=== PATIENT | female | born 1950 | race American Indian/Alaskan Native ===

== ENCOUNTER 2021-05-29 06:34 | Day surgery (SDC) | payer MEDICARE ==
[2021-05-29 07:43] LABS: Basophils # (Auto) 0.1 K/mm3 (0.0-0.1); Basophils % (Auto) 1.2 % (0.0-1.8); Eosinophils # (Auto) 0.1 K/mm3 (0.0-0.4); Hematocrit 37.1 % (30.3-42.9); Hemoglobin 12.1 gm/dl (10.1-14.3); Lymphocytes # (Auto) 2.9 K/mm3 (1.2-5.4); Lymphocytes % (Auto) 40.3 % (13.4-35.0); Mean Corpuscular HGB Conc 33 % (30-34); Mean Corpuscular Volume 88 fl (79-97); Monocytes # (Auto) 0.5 K/mm3 (0.0-0.8); Monocytes % (Auto) 7.6 % (0.0-7.3); Platelet Count 286 K/mm3 (140-440); Red Blood Count 4.24 M/mm3 (3.65-5.03)
[2021-05-29 07:54] LABS: BUN/Creatinine Ratio 19; Blood Urea Nitrogen 17 mg/dL (7-17); Hemolysis Index 6
[2021-05-29 07:55] LABS: INR 0.86 (0.87-1.13)
[2021-05-29 07:56] LABS: Partial Thromboplastin Time 30.9 Sec. (24.2-36.6)
[2021-05-29] MEDS ORDERED: SODIUM CHLORIDE 0.9% 500 ML 500 ML IV SCH (08:00)
[2021-05-29] MEDS ORDERED: HEPARIN/NS 5000 UNIT/500ML 1,000 ML IR ONE (08:25)
[2021-05-29] MEDS ORDERED: LIDOCAINE (2%) 20 MG/1 ML VIAL 20 ML MDV INFILTRATI ONE ×4 (08:26→10:38)
[2021-05-29] MEDS ORDERED: HEPARIN 10,000 UNITS/10 ML VIAL ONE ×2 (08:26→11:17)
[2021-05-29] MEDS ORDERED: VERAPAMIL 5 MG/2 ML INJ ONE (08:26)
[2021-05-29] MEDS ORDERED: NITROGLYCERIN SYRINGE 6 ML ONE (08:39)
[2021-05-29] MEDS ORDERED: HEPARIN/NS 5000 UNITS/500 ML BAG (CATH LAB ONLY) IR ONE ×2 (08:45)
[2021-05-29] MEDS ORDERED: fentaNYL 100 MCG/2 ML INJ ONE ×3 (08:53→10:59)
[2021-05-29] MEDS ORDERED: MIDAZOLAM 2 MG/2 ML INJ ONE ×3 (08:53→10:58)
[2021-05-29] MEDS ORDERED: MIDAZOLAM 2 MG/2 ML INJ IV ONE ×3 (09:08→10:18)
[2021-05-29] MEDS ORDERED: fentaNYL 100 MCG/2 ML INJ IV ONE ×4 (09:08→10:42)
[2021-05-29] MEDS ORDERED: HEPARIN 10,000 UNITS/10 ML VIAL IV ONE ×4 (09:20→11:21)
[2021-05-29] MEDS ORDERED: HEPARIN/NS 5000 UNIT/500ML 500 ML IR ONE (10:30)
[2021-05-29] MEDS ORDERED: VERAPAMIL 5 MG/2 ML INJ IV ONE (10:42)
[2021-05-29] MEDS ORDERED: NITROGLYCERIN 600 MCG/3 ML SYRINGE UD ONE (10:42)
[2021-05-29] MEDS ORDERED: SODIUM CHLORIDE 0.9% 1000 ML 1,000 ML ONE (10:51)
[2021-05-29] MEDS ORDERED: CLOPIDOGREL 300 MG TAB ONE (12:04)
[2021-05-29] MEDS ORDERED: ALUM-MAG HYDROXIDE-SIMETHICONE 200-200-20MG/5ML ORAL LIQD 30 ML ONE (12:05)
[2021-05-29] MEDS ORDERED: CLOPIDOGREL 300 MG TAB PO ONE ×2 (12:20→12:56)
[2021-05-29] MEDS ORDERED: ALUM-MAG HYDROXIDE-SIMETHICONE 200-200-20MG/5ML ORAL LIQD 30 ML PO ONE (12:20)
--- NOTE | 2021-05-29 12:50 | Short Stay Summary ---
Short Stay Documentation Date of service: 05/29/21 Narrative H&P: See H&P - History H&P: obtained from office - Allergies and Medications Current Medications: Allergies No Known Allergies Allergy (Verified 05/29/21 06:59) Home Medications Medication Instructions Recorded Confirmed Last Taken Type Lansoprazole 30 mg PO DAILY 05/29/21 05/29/21 05/28/21 History 30 mg amLODIPine 10 mg PO DAILY 05/29/21 05/29/21 05/29/21 04:30 History 10 mg hydroCHLOROthiazide [HCTZ] 25 mg PO DAILY 05/29/21 05/29/21 05/29/21 04:30 History lisinopriL [Zestril TAB] 40 mg PO DAILY 05/29/21 05/29/21 05/29/21 04:30 History Active Medications Sodium Chloride (Nacl 0.9% 500 Ml) 500 mls @ 50 mls/hr IV DIRECT CELY Last Admin: 05/29/21 08:34 Dose: 50 mls/hr Documented by: - Brief post op/procedure progress note Date of procedure: 05/29/21 Pre-op diagnosis: PVD with Bilateral Lower Extremity Claudication Post-op diagnosis: same Procedure: 1. Ultrasound Guided Access Left Common Femoral Artery 2. Ultrasound-Guided Access Right Common Femoral Artery 3. Ultrasound Guided Access Right Posterior Tibial Artery 4. Diagnostic Aortogram (No Previous Films For Comparison) 5. Diagnostic Left Lower Extremity Angiogram (No previous Films for Comparison) 6. Angioplasty and Stent of Left External Iliac Artery with 7 x 5 cm Viabahn Stent Graft (x2) and 7 x 40 [place] Balloon 7. Angioplasty of Left Common Femoral Artery with 7 x 80 IN.PACT Drug-Coated Balloon 8. Angioplasty of Left Profunda Artery with 5 x 150 IN.PACT Drug-Coated Balloon 9. Atherectomy with Angioplasty and Stent of Left SFA and Popliteal Artery with 2.4/3.4 Jetstream Atherectomy Catheter, 5 x 220 Gene Balloon, 6 x 150 IN.PACT Drug-Coated Balloon, 6 x 10 cm Viabahn Stent Graft, and 7 x 60 EverFlex Self-Expanding Stent 10. Closure of Right Femoral Arteriotomy with Pro-[place] Closure Device 11. Radiologic Supervision with Interpretation 12. Monitored Moderate Sedation (Total Anesthesia Time: 178 Minutes) Anesthesia: local, other (Monitored Moderate Sedation) Surgeon: OWEN NANCE Estimated blood loss: minimal Pathology: none Condition: stable - Disposition Condition at discharge: Good Disposition: 01 HOME / SELF CARE / HOMELESS Short Stay Discharge Plan Activity: other (No strenuous activity for 24 hours) Wound: remove dressing (In 24 hours), other (Okay to shower and wash the wounds with soap and water but do not soak in water for 2 weeks.) Follow up with: OWEN NANCE MD [Staff Physician] - 14 Days Prescriptions: Apixaban [Eliquis] 2.5 mg PO BID #60 tablet Oxycodone HCl/Acetaminophen [Percocet 7.5/325 mg] 1 each PO Q6HR PRN #30 tablet PRN Reason: Pain Clopidogrel [Plavix] 75 mg PO QDAY #90 tablet
[2021-05-29] MEDS ORDERED: oxyCODONE /ACETAMINOPHEN 5-325MG TAB PO PRN (12:56)
--- NOTE | 2021-05-29 12:56 | Operative Report ---
Operative Report Operative Report: Date of Procedure: 05/29/2021 Pre-operative Diagnosis: Peripheral Vascular Disease with Bilateral Lower Extre mity Claudication Post-operative Diagnosis: Same Procedure(s): 1. Ultrasound Guided Access Left Common Femoral Artery 2. Ultrasound-Guided Access Right Common Femoral Artery 3. Ultrasound Guided Access Right Posterior Tibial Artery 4. Diagnostic Aortogram (No Previous Films For Comparison) 5. Diagnostic Left Lower Extremity Angiogram (No previous Films for Comparison) 6. Angioplasty and Stent of Left External Iliac Artery with 7 x 5 cm Viabahn Stent Graft (x2) and 7 x 40 [place] Balloon 7. Angioplasty of Left Common Femoral Artery with 7 x 80 IN.PACT Drug-Coated Balloon 8. Angioplasty of Left Profunda Artery with 5 x 150 IN.PACT Drug-Coated Balloon 9. Atherectomy with Angioplasty and Stent of Left SFA and Popliteal Artery with 2.4/3.4 [employer] Atherectomy Catheter, 5 x 220 Gene Balloon, 6 x 150 IN.PACT Drug-Coated Balloon, 6 x 10 cm Viabahn Stent Graft, and 7 x 60 EverFlex Self-Expanding Stent 10. Closure of Right Femoral Arteriotomy with Pro-[place] Closure Device 11. Radiologic Supervision with Interpretation 12. Monitored Moderate Sedation (Total Anesthesia Time: 178 Minutes) Surgeon: Carroll Almanzar M.D. Dancing Teacher: None Anesthesia: Local/Monitored Moderate Sedation Total Anesthesia Time: 178 Minutes EBL: Minimal Counts: Correct Complications: None Condition: Stable Specimen: None Indication: The patient is a 71-year-old female with a history of peripheral vascular disease who presented with complaints of short distance claudication affecting bilateral lower extremities. She had previous interventions performed by an outside surgeon and presented for possible intervention by myself. She was given the risk, benefits, and alternative procedures and consented to the procedure. Angiographic Findings: The diagnostic aortogram revealed that the aorta was patent without aneurysmal dilatation or flow-limiting stenosis. The left lower extremity angiogram revealed that the left common iliac artery and hypogastric artery were patent without evidence of flow-limiting stenosis. There was a short string sign in the external iliac artery with an occlusion and reconstitution in the distal external iliac artery. The distal external iliac artery was stenotic with approximately 75% stenosis. The common femoral artery was patent but stenotic with approximately 50% stenosis. The profunda artery was patent without significant flow-limiting stenosis. The SFA was occluded with reconstitution of the popliteal artery and above-knee popliteal artery segment. The patient had three-vessel runoff and all vessels were patent without significant flow- limiting stenosis. After intervention the external iliac artery was patent with less than 10% residual stenosis. The common femoral artery was patent with some evidence of dissection however this was not flow-limiting. Both the SFA and profunda arteries were patent. The SFA was patent with approximately 30% stenosis in a short segment of the proximal artery. The remainder of the artery was patent with less than 20% residual stenosis. The popliteal artery was patent with less than 15% residual stenosis. Description of Procedure: The patient was brought to the Finance Business Manager and laid in supine position. After a timeout was performed she was adequately sedated and her bilateral groins and left foot were prepped and draped in normal sterile fashion. Ultrasound was used to identify the right common femoral artery and confirm patency. Once patency was confirmed the overlying skin and soft tissue was anesthetized with lidocaine. An 11 blade was used to make a small stab incision and then a curved hemostat was used to bluntly dissect down to the anterior surface of the right common femoral artery using ultrasound guidance. A 21-gauge micropuncture needle was used with ultrasound guidance to enter the right common femoral artery and a 0.018 micropuncture wire was advanced to the artery. The needle was removed and a micropuncture sheath was placed by Seldinger technique. The dilator and wire were removed and a 0.035 J-wire was advanced to the aorta. The micropuncture sheath was exchanged for 5 [place]an sheath by Seldinger technique. An Omni Flush catheter was advanced to the aorta and after removing the wire a diagnostic aortogram was performed with the previously described findings. A Bentson wire was advanced into the Omni Flush catheter and the catheter and wire were advanced up and over the bifurcation and an iliofemoral angiogram was performed with the previously described findings. The remainder of the angiogram was then performed with the catheter in the left common iliac artery. The Bentson wire was advanced into the hypogastric artery and the 5 Ugandan sheath was exchanged for a 7 Ugandan 45 cm destination sheath by Seldinger technique. At this point the patient was systemically heparinized with 5000 units of heparin IV and this was redosed with 1000 units of heparin IV every 45 minutes into the completion of the case. I then attempted to traverse the occluded external iliac artery using a Navicross catheter and a combination of wires without success. I decided to access the left common femoral artery and cross the occlusion in retrograde access. I used ultrasound to identify the left common femoral artery and accessed the artery using a 21-gauge micropuncture needle. I advanced a 0.018 micropuncture wire into the artery and then advanced the micropuncture dilator over the wire and into the stump of the external iliac artery. I removed the micropuncture wire and then advanced the 0.018 V18 wire over into the dilator and was able to cross the occluded external iliac artery and reenter into the common iliac artery. I used a 6-10 mm EnSnare through the 7 Ugandan sheath and was able to snare the wire and pulled this back through the right common femoral artery. I then advanced the Navicross catheter over the wire and into the common femoral artery which was confirmed by angiogram. I then remove the micropuncture dilator. I advanced a 0.014 [place] wire into the profunda artery and then performed angioplasty of the common femoral artery and external iliac artery using a 5 x 100 [place] Balloon. I then performed angioplasty of the common femoral artery and external iliac artery using a 6 x 100 IN.PACT Drug-Coated Balloon. This resulted in inline flow through the external iliac artery and into the profunda artery. At some point the wire was inadvertently pulled back across the reentry point and while recrossing the lesion the common femoral artery and external iliac artery were dissected which resulted in loss of inline flow into the profunda artery. At this point I decided to gain pedal access and revascularize the SFA. I used ultrasound to identify the left posterior tibial artery and anesthetize skin and soft tissue using lidocaine. I used a 21-gauge micropuncture needle with ultrasound guidance to access the artery in retrograde fashion and advanced the 0.018 micropuncture wire to the artery. I removed the needle and placed a micropuncture sheath by Seldinger technique. I remove the wire and dilator and placed a short J-wire and then placed a 4 [place] sheath by Seldinger technique. I injected a radial cocktail to reduce the spasm of the artery and then advanced a 0.018 V 18 wire through the artery and into the above-knee popliteal artery segment. I advanced a Navicross catheter over the wire and was able to cross the occluded popliteal artery and SFA and reenter into the common femoral artery which was confirmed by angiogram. I then was able to cannulate the 7 [place] sheath and advanced the catheter wire through the sheath and out of the right common femoral artery. I removed the Navicross catheter and advanced it back up over the wire and into the posterior tibial artery in antegrade fashion. I removed the V 18 wire and advanced the 0.014 Thruway wire into the posterior tibial artery. I performed atherectomy of the SFA using a 2.4/3.4 [employer] Atherectomy Catheter I performed angioplasty of the SFA and popliteal artery using a 6 x 150 IN.PACT Drug-Coated Balloon which resulted in a short segment dissection in the mid SFA and an area of perforation in the proximal SFA. I advanced a 6 x 10 cm Viabahn Stent Graft across the area of perforation and postdilated this with the 6 mm balloon resulted in no further perforation and less than 10% residual stenosis. I then placed a 7 x 60 EverFlex Self-Expanding Stent across the area of dissection and postdilated this with a 6 mm balloon resulted in less than 20% residual stenosis. There was an area just proximal to the stent graft with approximately 25% residual stenosis however this was not flow-limiting. I tyrone wired the common femoral artery leaving the Spartacore wire in place and was then able to use a vertebral catheter and a glide advantage wire and cannulate the profunda artery that had a dissection, preventing direct flow into the artery. I performed angioplasty of the artery using a 5 x 150 IN.PACT Drug-Coated Balloon which resulted in brisk flow of contrast into the artery and shifting of the plaque shelf lateral to the origin of the artery. I then advanced two 7 x 5 cm Viabahn Stent Grafts, with slight overlap, extending from the distal external iliac artery into the proximal external iliac artery and postdilated them with a 7 x 40 [place] balloon. This resulted in less than 10% residual stenosis within the left external iliac artery and brisk flow of contrast through the external iliac artery. I performed a final angioplasty of the left common femoral artery with a 7 x 80 IN.PACT Drug-Coated Balloon which resulted in less than 25% residual stenosis within the common femoral artery. At that point I removed all balloons and wires and advanced a Opbeatson wire to the aorta. I removed the sheath and used a Pro-glide closure device to close the left femoral arteriotomy. I injected a total of 400 mcg of nitroglycerin into the posterior tibial artery sheath and then removed and manual pressure was held to achieve hemostasis. Once hemostasis was achieved sterile dressings were applied to each entry site and the patient was transported to the recovery area in stable condition.
[2021-05-29] MEDS ORDERED: APIXABAN 2.5 MG TAB PO ONE (13:00)
[2021-05-29 14:55] VITALS: BP 148/73
== END 2021-05-29 15:14 | disposition home or self-care (01) ==
LOC: CATHLABREC 06:34
PROVIDERS: ATTEND Surgery Vascular Surgery
DX: I70.213 Atherosclerosis of native arteries of extremities with intermittent claudication, bilateral legs (principal); I10 Essential (primary) hypertension; Z87.891 Personal history of nicotine dependence; Z79.899 Other long term (current) drug therapy; Z98.890 Other specified postprocedural states
CPT/HCPCS: 36415; 37221; 37227; 75625; 75710; 76937; 80048; 85025; 85610; 85730; 99156; 99157; C1724; C1725; C1751; C1760; C1769; C1773; C1874; C1876; C1887; C1894; C2623; J1644; J2250; J3010; J7030; J7040; Q9967

== ENCOUNTER 2021-09-11 06:25 | Day surgery (SDC) | payer MEDICARE ==
[2021-09-11 07:51] LABS: Hematocrit 34.6 % (30.3-42.9); Hemoglobin 11.2 gm/dl (10.1-14.3); Mean Corpuscular HGB Conc 32 % (30-34); Mean Corpuscular Volume 89 fl (79-97); Platelet Count 357 K/mm3 (140-440); Red Blood Count 3.91 M/mm3 (3.65-5.03); Red Cell Distribution Width 13.1 % (13.2-15.2)
[2021-09-11] MEDS ORDERED: SODIUM CHLORIDE 0.9% 500 ML 500 ML IV SCH (08:00)
[2021-09-11 08:03] LABS: INR 0.84 (0.87-1.13); Partial Thromboplastin Time 26.9 Sec. (24.2-36.6)
[2021-09-11 08:05] LABS: Calcium 8.9 mg/dL (8.4-10.2)
[2021-09-11] MEDS ORDERED: HEPARIN/NS 5000 UNIT/500ML 1,000 ML IR ONE (08:36)
[2021-09-11] MEDS ORDERED: ceFAZolin/Water 2 GM/20 ML 2 GM/20 ML SYRINGE IV ONE (09:10)
[2021-09-11] MEDS: fentaNYL 100 MCG/2 ML INJ ONE ×3 (09:16→10:14)
[2021-09-11] MEDS: MIDAZOLAM 2 MG/2 ML INJ ONE ×3 (09:16→10:14)
[2021-09-11] MEDS: LIDOCAINE (2%) 20 MG/1 ML VIAL 20 ML MDV INFILTRATI ONE ×2 (09:16→09:32)
[2021-09-11] MEDS: HEPARIN 10,000 UNITS/10 ML VIAL ONE ×2 (09:46→10:30)
[2021-09-11] MEDS ORDERED: SODIUM CHLORIDE 0.9% 1000 ML 1,000 ML ONE (10:09)
[2021-09-11] MEDS ORDERED: MIDAZOLAM 5 MG/5 ML INJ MDV IV ONE (10:09)
[2021-09-11] MEDS: fentaNYL 250 MCG/5 ML INJ ONE ×2 (10:22→10:30)
[2021-09-11] MEDS ORDERED: NITROGLYCERIN SYRINGE 6 ML ONE (10:55)
--- NOTE | 2021-09-11 11:24 | Short Stay Summary ---
Short Stay Documentation Date of service: 09/11/21 Narrative H&P: See H&P - History H&P: obtained from office - Allergies and Medications Current Medications: Allergies No Known Allergies Allergy (Verified 05/29/21 06:59) Home Medications Medication Instructions Recorded Confirmed Last Taken Type Clopidogrel [Plavix] 75 mg PO QDAY #90 tablet 05/29/21 09/11/21 09/11/21 Rx 75 MG Lansoprazole 30 mg PO DAILY 05/29/21 09/11/21 09/10/21 History 30 MG Oxycodone HCl/Acetaminophen 1 each PO Q6HR PRN #30 tablet 05/29/21 09/11/21 Unknown Rx [Percocet 7.5/325 mg] amLODIPine 10 mg PO DAILY 05/29/21 09/11/21 09/11/21 History 10 MG hydroCHLOROthiazide [HCTZ] 25 mg PO DAILY 05/29/21 09/11/21 09/11/21 History 25 MG lisinopriL [Zestril TAB] 40 mg PO DAILY 05/29/21 09/11/21 09/11/21 History 40 MG Active Medications Sodium Chloride (Nacl 0.9% 500 Ml) 500 mls @ 50 mls/hr IV DIRECT CELY - Brief post op/procedure progress note Date of procedure: 09/11/21 Pre-op diagnosis: Peripheral Vascular Disease with Right Lower Extremity Claudication Post-op diagnosis: same Procedure: 1. Ultrasound Guided Access Left Common Femoral Artery 2. Diagnostic Right Lower Extremity Angiogram (No Previous Films for Comparison) 3. Atherectomy and Angioplasty of the Right SFA and Popliteal Artery with 2.1/3.0 Jetstream Atherectomy Catheter, 5.0 x 220 Gene Balloon in the Distal Popliteal Artery, and 6.0 x 150 IN.PACT Drug-Coated Balloons (x3) in the Proximal Popliteal Artery and SFA 4. Angioplasty and Stent of Right External Iliac Artery with 7.0 x 80 IN.PACT Drug-Coated Balloon and 7 x 5 cm Viabahn Stent Graft 5. Closure of Left Femoral Arteriotomy with Perclose ProStyle Closure Device 6. Radiologic Supervision with Interpretation 7. Monitored Moderate Sedation (Total Anesthesia Time: 104 Minutes) Anesthesia: local, other (Monitored Moderate Sedation) Surgeon: OWEN NANCE Estimated blood loss: minimal Pathology: none Condition: stable - Disposition Condition at discharge: Good Disposition: 01 HOME / SELF CARE / HOMELESS Short Stay Discharge Plan Activity: other (No strenuous activity for 48 hours) Wound: remove dressing (In 48 hours), other (Okay to shower and wash the wound with soap and water but do not soak in water for 2 weeks.) Special Instructions: other (Subtitute Pletal (Cilastazol) for Aspirin. Ok to stop taking the aspirin.) Follow up with: OWEN NANCE MD [Staff Physician] - 14 Days Prescriptions: cilostazoL [Pletal] 100 mg PO BID #180 tablet
[2021-09-11] MEDS ORDERED: HYDROcodone/ACETAMINOPHEN 5-325 MG TAB PO PRN (12:05)
--- NOTE | 2021-09-11 12:08 | Operative Report ---
Operative Report Operative Report: Date of Procedure: 09/11/2021 Pre-operative Diagnosis: Peripheral Vascular Disease with Right Lower Extremity Claudication Post-operative Diagnosis: Same Procedure(s): 1. Ultrasound Guided Access Left Common Femoral Artery 2. Diagnostic Right Lower Extremity Angiogram (No Previous Films for Comparison) 3. Atherectomy and Angioplasty of the Right SFA and Popliteal Artery with 2.1/3.0 Jetstream Atherectomy Catheter, 5 x 220 Gene Balloon in the Distal Popliteal Artery, and 6 x 150 IN.PACT Drug-Coated Balloons (x3) in the Proximal Popliteal Artery and SFA 4. Angioplasty and Stent of Right External Iliac Artery with 7.0 x 80 IN.PACT Drug-Coated Balloon and 7 x 5 cm Viabahn Stent Graft 5. Secondary Embolectomy of Right Anterior Tibial Artery 6. Closure of Left Femoral Arteriotomy with Perclose ProStyle Closure Device 7. Radiologic Supervision with Interpretation 8. Monitored Moderate Sedation (Total Anesthesia Time: 104 Minutes) Surgeon: Carroll Almanzar M.D. Joint Maker Machine: Francoise Anesthesia: Local/Monitored Moderate Sedation Total Anesthesia Time: 104 Minutes EBL: Minimal Counts: Correct Complications: None Condition: Stable Specimen: None Indication: The patient is a 71-year-old female with a history of peripheral vascular disease who has undergone revascularization of her left lower extremity. She continues to have short distance claudication in her right lower extremity and requires a diagnostic angiogram with possible intervention. She was given the risk, benefits, and alternative procedures and consented to the procedure. Angiographic Findings: The diagnostic right lower extremity angiogram revealed that the common iliac artery was patent without significant flow-limiting stenosis. The hypogastric artery was pain without significant flow-limiting stenosis. There was diffuse stenosis within the mid and distal external iliac artery ranging from 50 to 85%. The right common femoral artery was patent without significant flow-limiting stenosis. There was an occlusion at the origin of the profunda artery with reconstitution through collaterals in the mid profunda artery. The remainder of the artery was patent without significant flow-limiting stenosis. The SFA was occluded after a short stop at the origin and there was reconstitution in the proximal popliteal artery. Of note there was a stent graft within the distal SFA that was also occluded. The patient had three-vessel runoff and all 3 vessels were patent without significant flow-limiting stenosis. After intervention the right external iliac artery was patent with less than 10% residual stenosis. The SFA was patent with less than 15% residual stenosis. The popliteal artery was patent with less than 15% residual stenosis. There was a small amount of embolic debris within the anterior tibial artery that was aspirated through a Navicross catheter and there was no differential embolic debris noted in the tibial vessels. Description of Procedure: The patient was brought to the Lead Android Developer and laid in supine position. After timeout was performed her left groin was prepped and draped in normal sterile fashion. Ultrasound was used to identify the left common femoral artery confirmed patency. Once patency was confirmed overlying skin and soft tissue was anesthetized with lidocaine. An 11 blade was used to make a small stab incision and then a curved hemostat was used ultrasound guidance to bluntly dissect down to the anterior surface of the left common femoral artery. An 18- gauge access needle was used with ultrasound guidance to the left common femoral artery and a 0.035 Bentson wire was advanced into the artery. After removing the needle 5 Italian sheath was placed by standard technique. An Omni Flush catheter was advanced over the Bentson wire and the catheter and wire were advanced up and over the bifurcation. A diagnostic iliofemoral angiogram was performed to previously described findings. I advanced the catheter and wire into the common femoral artery and performed the remainder of the right lower extremity angiogram with the previously described findings. I removed the 5 Italian sheath and exchanged for a 7 Italian 45 cm destination sheath by Seldinger technique. At this point I systemically heparinized patient with 5000 units of heparin IV and this was redosed with 1000 units IV every 45 minutes with completion of the case. I used a Navicross catheter and a 0.018 V18 wire and was able to traverse the occluded portion of the proximal SFA however was unable to enter the stent graft. I was eventually able to cannulate the stent graft using a 0.035 glide advantage wire with a Navicross catheter. I was able to advance the catheter and wire to the below-knee popliteal artery and confirmed placement of the catheter with angiogram. I then advanced the V 18 wire into the anterior tibial artery and predilated the occluded portions using a 3 x 220 Gene Balloon. I then readvanced the Navicross catheter and exchanged the V 18 wire for 0.014 Thruway Wire. I performed atherectomy of the occluded SFA and popliteal artery using the 2.1/3.0 JetInform Direct Atherectomy Catheter. I then performed angioplasty of the popliteal artery and SFA using a 5.0 x 220 Gene balloon. I readvanced a Navicross catheter and exchanged the ThruWay wire for the glide advantage wire and performed angioplasty of the proximal popliteal artery and SFA using 6.0 x 150 IN.PACT Drug-Coated Balloons (x3). After performing angioplasty to follow-up angiogram revealed less than 15% residual stenosis within the popliteal artery as well as the SFA. There was evidence of small amount of debris in the distal anterior tibial artery and dorsalis pedis artery which I was able to advance the Navicross catheter into the artery and aspirate the emboli. I readvanced the catheter into the artery after flushing and injected 600 mcg of nitroglycerin into the tibial vessels. I reinserted the glide advantage wire and then performed angioplasty of the mid and distal external iliac artery using a 7.0 x 80 IN.PACT drug-coated balloon which resulted in less than 10% residual stenosis within the mid external iliac artery however there was a dissection of the distal external iliac artery that was flow-limiting. I exchanged the glide advantage wire for the V18 wire and advanced a 7 x 5 cm Viabahn Stent Graft across the lesion and deployed it. This resulted in less than 10% residual stenosis and no further evidence of dissection in the distal external iliac artery. At that point I removed the V 18 wire and pulled the sheath back into the left external leg artery. I advanced a 0.035 J-wire into the aorta and after removing the sheath used a Perclose ProStyle closure device to close the left femoral arteriotomy. A sterile dressing was then applied to the entry site and the patient was transported to the recovery area in stable condition.
[2021-09-11 13:08] VITALS: BP 153/53
== END 2021-09-11 13:45 | disposition home or self-care (01) ==
LOC: CATHLABREC 06:25
PROVIDERS: ATTEND Surgery Vascular Surgery
DX: I70.213 Atherosclerosis of native arteries of extremities with intermittent claudication, bilateral legs (principal); I10 Essential (primary) hypertension; Z90.710 Acquired absence of both cervix and uterus; Z98.890 Other specified postprocedural states; Z79.899 Other long term (current) drug therapy; Z82.49 Family history of ischemic heart disease and other diseases of the circulatory system
CPT/HCPCS: 34203; 36415; 37221; 37225; 75710; 76937; 80048; 85027; 85610; 85730; 99156; 99157; C1724; C1725; C1760; C1769; C1874; C1887; C2623; J0690; J1644; J1815; J2250; J3010; J3490; J7030; J7040; 37186; Q0162; Q9967